=== PATIENT | male | born 1990 ===

== ENCOUNTER 2016-12-18 08:52 | Day surgery (SDC) | payer OTHER ==
[2016-12-17 11:56] VITALS: BMI 38.8
[2016-12-18] MEDS ORDERED: Lactated Ringer's 1,000 ML IV ONE (11:00)
[2016-12-18] MEDS ORDERED: Lidocaine 2% w Epi 1:100,000 Inj IJ ONE (13:27)
[2016-12-18] MEDS ORDERED: Propofol 10 mg/ml Inj (20 ML) ONE (13:50)
[2016-12-18] MEDS ORDERED: Midazolam 2 MG/2 ML VIAL ONE (13:51)
[2016-12-18] MEDS ORDERED: Lidocaine Hydrochloride 5 ML INJ ONE ×2 (13:52→14:33)
[2016-12-18] MEDS ORDERED: Neostigmine Methylsulfate 2 MG/2 ML ML IV ONE (13:55)
[2016-12-18] MEDS ORDERED: Succinylcholine 200 mg/10 ml Inj IV ONE (13:55)
[2016-12-18] MEDS ORDERED: Rocuronium 10 mg/ml (5 ml) ONE (13:55)
[2016-12-18] MEDS ORDERED: Lidocaine 4% (Laryng-O-Jet) Kit MM ONE (13:55)
[2016-12-18] MEDS ORDERED: SENSORCAINE 0.5% W/EPINEPHRINE 50ML MDV IJ ONE (14:08)
[2016-12-18] MEDS ORDERED: Bupivacaine 0.25%-Epinephrine 1:200,000 (30 ml) Inj ONE (14:09)
[2016-12-18] MEDS ORDERED: Sevoflurane - Inhalation Anesthetic Liq (250 ml) ONE (15:13)
[2016-12-18] MEDS ORDERED: Etomidate 20 mg/10ml Inj IV ONE (15:29)
[2016-12-18] MEDS ORDERED: ePHEDrine 50 mg/ml Inj ONE (15:29)
[2016-12-18] MEDS ORDERED: HYDROmorphone 0.5 mg/0.5 ml ISec IVP PRN (16:26)
[2016-12-18] MEDS ORDERED: Lactated Ringer's 1,000 ML IV SCH (16:30)
--- NOTE | 2016-12-18 16:31 | PCM.SURG1 ---
Surgeon's Initial Post Op Note - Surgeon's Notes Surgeon: Gracie Harrison MD [employer] Insurance Agent: Emile Schmidt PA-C Type of Anesthesia: General Endo Pre-Operative Diagnosis: Right shoulder SLAP tear Operative Findings: see op report Post-Operative Diagnosis: same as pre-op dx Operation Performed: Right shoulder arthroscopy, debriedement, SLAP repair, subacromial decompression Specimen/Specimens Removed: none Estimated Blood Loss: EBL {In ML}: 5 Date of Surgery/Procedure: 12/18/16 Time of Surgery/Procedure: 15:00
[2016-12-18] MEDS ORDERED: Oxycodone/Acetaminophen 5/325 mg Tab PO PRN (16:33)
--- NOTE | 2016-12-18 16:34 | PCM.ANESB1 ---
Interscalene Block - Brachial Plexus Date of Procedure: 12/18/16 Anesthesiologist: Dr. Petit Pre-Procedure Diagnosis: Torn rotator cuff of the right shoulder Post-Procedure Diagnosis: Torn rotator cuff of the right shoulder Procedure Performed: Interscalene Block of Brachial Plexus Right - Procedure Interscalene Block of Brachial Plexus: This procedure was explained to the patient that it is for post-operative pain management. Consent was obtained after a thorough discussion with the patient regarding the benefits and possible complications of local anesthetic block of the Brachial Plexus at the Interscalene area. The patient was brought to the Operating Room and standard monitors were applied. Time out was held with the circulating nurse to confirm the correct surgery and appropriate block. After applying Oxygen by nasal cannula and administering IV Sedation, the patient's head was gently rotated away from the right operative shoulder and the anterior scalene groove was carefully palpated. The ultrasound transducer was then applied to the skin in the transverse plane and the brachial plexus was visualized lateral to the carotid artery and in between the anterior and middle scalene muscles. After identification,the anterior lateral portion of the neck was prepped with Chloraprep solution and Lidocaine 1% was injected subcutaneously for topical analgesia. At this point, a # 21 gauge Stimuplex 4 inches insulated needle was inserted into the interscalene groove and directed in a caudal and midline direction. The needle was inserted lateral to the ultrasound transducer in-plane towards the brachial plexus in a [id number] direction. Needle advancement was performed carefully under direct ultrasound visualization. Nerve stimulator was used and twitched of the affected extremity including the hand brachialis muscles, biceps and the deltoid was obtained at a current of 0.3MA. After repeated negative aspiration, 5cc of 0.375% Bupivacaine with 1:200,000 epinephrine were injected and this was followed with 25cc of 0.375% Bupivacaine with 1:200,000 epinephrine. Under ultrasound guidance the local anesthetics were observed surrounding the roots of the brachial plexus. The needle was removed intact and sterile dressing was applied. The patient had stable vital signs, was conscious and in no apparent distress. The patient tolerated the interscalene block of the bracheal plexus well with stable vital signs and was prepared for subsequent surgery.
[2016-12-19 00:14] VITALS: BP 135/79; PULSE 72; RESP 19; TEMP 98.5; O2SAT 97
--- NOTE | 2016-12-19 08:20 | OP ---
PROCEDURE DATE: 12/18/2016 ATTENDING: GRACIE HARRISON MD LABORATORY ANIMAL CARETAKER: GABRIELA ISABEL PA-C PREOPERATIVE DIAGNOSES: 1. Right shoulder synovitis. 2. Impingement. 3. Acromioclavicular joint hypertrophy. POSTOPERATIVE DIAGNOSES: 1. Right shoulder type II superior labrum anterior and posterior tear. 2. Extensive synovitis. 3. Bursitis. 4. Impingement. 5. Acromioclavicular joint hypertrophy. 6. Multiple subacromial adhesions. PROCEDURES: 1. Right shoulder arthroscopy, type II SLAP repair. 2. Major synovectomy. 3. Subacromial decompression with acromioplasty. 4. Distal AC joint resection. 5. Lysis of subacromial adhesions. ANESTHESIA TYPE: General, interscalene block. EBL: 15 mL. FLUIDS: See anesthesia sheet. ANTIBIOTICS: See anesthesia sheet. COMPLICATIONS: None. INDICATIONS: After failing a course of nonoperative therapy, the patient elected to undergo the above procedures. In the office the risks and possible complications of the shoulder arthroscopy were discussed in detail with the patient. These risks include, but are not limited to, continued pain, lack of motion, infection, vascular injury, and nerve injury including axillary nerve dysfunction, reflex sympathetic dystrophy, compartment syndrome, limb loss, and . The patient expressed an understanding of the risks and possible benefits of the procedure, and was also made aware of the alternatives to surgery. An informed consent was obtained, and was checked immediately preop. The patient's shoulder injuries requiring surgery are the result of an accident/incident that occurred at work. Procedure 1: The patient was correctly identified in the holding area and the right shoulder was marked with the surgeon's initials. The patient was transported to the operating room and placed in the supine position and general anesthesia with regional interscalene block was used. A preoperative orthopedic examination revealed a passive range of motion of 270 degrees of forward elevation, 40 degrees of external rotation, and 120 degrees of abduction. Stability examination, no instability was noted. Procedure 2: The patient was then placed in a beach chair position utilizing the beach chair positioning device. The patient's head was stabilized and the indicated upper extremity was prepped and draped in the standard surgical fashion. The anatomic structures were outlined with a skin marker, and 1% lidocaine with epinephrine was injected into the posterior, anterior, and lateral portal areas. A #21-gauge spinal needle was placed in the glenohumeral joint from the posterior portal and 10 mL of sterile saline was injected into the glenohumeral joint. Return of fluid indicated correct needle placement into the joint. The needle was then withdrawn and a #11 blade was used to make a 1-cm incision at the posterior portal site. Next, the arthroscopic blunt trocar was inserted into the glenohumeral joint. A #21-gauge spinal needle was placed through the anterior rotator interval, and the anterior portal was made with a #11 blade after the spinal needle was withdrawn. A 7-mm cannula was then inserted after the skin incision was made and the arthroscopic probe was then used to examine the internal structures of the glenohumeral joint. With the shoulder in abducted and externally rotated position, the articular surface of the rotator cuff was visualized. The arthroscope and probe were then switched from posterior to anterior. The posterior labrum, posterior capsule, and biceps anchor reflection was then inspected with the arthroscope in the anterior portal position. Examination of the glenohumeral joint revealed: 1. Type II SLAP tear. 2. Extensive synovitis. Excessive glenohumeralsynovitis was cleared with a 4.0 mm full radius shaver. The hypertrophic, erythematous synovium was resected. Hemostasis was maintained with the radiofrequency device. The unstable biceps anchor was next addressed. Using a combination of the 4.0 mm full radius shaver and a small rasp, the superior glenoid rim was debrided to a bed of bleeding bone. Extreme care was taken to protect the chondral surface of the glenoid as well as the substance of the biceps tendon. A #2 FiberWire was placed around the biceps tendon using a SutureLasso passing device. Using a trans-tendon approach, a spinal needle was placed through the supraspinatus tendon aiming towards the superior glenoid rim at the 12 o'clock position. A 3 mm stab incision was made in Maria D's lines at the distal edge of the acromion, and the ArthrexPushLock trocar was introduced into the joint. The FiberWire suture was drawn out though the lateral portal and threaded through the PushLock implant. The implant was placed after a commercial airplane pilot hole was drilled with the standard PushLock technique. Proper biceps anchor tension was achieved, and the device was firmly impacted into the superior glenoid using a mallet. At this point, the arthroscope was withdrawn from the glenohumeral joint and subacromial space was then entered using a blunt trocar. Gentle resistance sweeping against the coracoacromial ligament confirmed proper placement of the sheath and the arthroscope was inserted. A 1-cm incision was made at the inferolateral acromial area to create the lateral portal. Examination of the subacromial space revealed: 1. Extensive bursitis. 2. Impingement. 3. Multiple subacromial adhesions. 4. AC joint hypertrophy. Visualization of the subacromial space was difficult due to excessive bursitis. A bursectomy was performed using a combination of radiofrequency device as well as a 4.0-mm full radius motorized shaver. The soft tissue on the undersurface of the acromion was debrided utilizing the 4.0-mm full radius shaver and the radiofrequency device was used for hemostasis. At this point, the coracoacromial ligament was released with the radiofrequency device and the acromial branch of the thoracoacromial artery was coagulated with the same instrument. Subacromial decompression was performed with a 4.0-mm conical chad using both the medial portal and the "cutting-block" precision acromioplasty technique from the posterior portal. The undersurface of the acromion was resected to a flat, smooth surface to allow unrestricted excursion of the rotator cuff. There were multiples adhesions noted within the subacromial space. Adhesions were found within the anterior, posterior, and lateral gutters. These adhesions were scarred into anterior and posterior portion of rotator cuff limiting range of motion. Using the 4.0-mm motorized shaver and radiofrequency probe, adhesions were debrided and removed. All the bleeding surfaces were coagulated. Afterwards, the shoulder was taken through range of motion and there was a notable improvement in range of motion and unrestrictive excursion of rotator cuff muscle and tendons. After adequate subacromial decompression, attention was then turned to the acromioclavicular joint which was localized using a 21-gauge spinal needle. A single 1-cm incision was placed on the superior aspect of the acromioclavicular joint, and the arthroscope and radiofrequency device were then inserted. Utilizing the radiofrequency device for hemostasis as well as tissue ablation, the perimeter of the distal clavicle was denuded of soft tissue. Care was taken to preserve the superoposterior soft tissue ligamentous attachments to the distal clavicle. A 4.0-mm conical chad was introduced through the superior portal and 7 mm of distal clavicle was excised. A 1 mm of medial acromion was also resected. All resected bone was planed to a smooth, flat surface, and was checked by arthroscopic visualization from the superior AC joint portal. The subacromial space was then irrigated with sterile saline, and closure was instituted with sutures. A dressing was placed consisting of Xeroform, 4x4's, ABD pads, and tape. The patient was placed in a sling with an ABD pad in the axilla. The patient was then placed in a supine position and extubated without incident. The patient was transferred to the recovery room in stable condition, having tolerated the procedure well. Postoperatively, the patient will be maintained in an abduction sling, also provided with my rehab protocol, defining the restriction and sling use for 6 weeks. Postoperatively, a continuous passive motion machine will be delivered to the patient's home and the patient will be instructed in its use. The CPM machine is necessary to optimize the patient's postoperative range of motion and provide the best possible outcome from the procedure. During this procedure, I was assisted by Gabriela Isabel, who assisted in positioning the patient on the operating room table as well as transferring the patient from the operating room table to the recovery room stretcher. In addition, Gabriela Isabel, assisted me during the actual operative procedure by positioning the patient's extremity to allow for easier arthroscopic access to all areas of the joint. The presence of Gabriela Isabel, as my operative communications assistant, was medically necessary to ensure the utmost safety of the patient in the pre, intra-, and postoperative periods. Due to the patient's morbid obesity, this procedure was more difficult than a standard shoulder arthroscopy. This required extra time during prepping and draping, as well as an extended operative time. The length of the case was prolonged due to these factors by 25%. Gracie Harrison MD [facility]
== END 2016-12-18 23:00 | disposition home or self-care (01) ==
LOC: H.OPSURG 08:52 → H.MEDSURG1 17:53 → H.OPSURG 23:00
PROVIDERS: ATTEND Orthopaedic Surgery
DX: M75.41 Impingement syndrome of right shoulder (principal); M65.811 Other synovitis and tenosynovitis, right shoulder; M75.51 Bursitis of right shoulder
CPT/HCPCS: 29807; 29820; 29825; J0171; J0330; J0690; J1170; J1885; J2250; J2704; J2710; J2765; J3010; J7030; J7120